=== PATIENT | female | born 1975 | race African-American/Black ===

== ENCOUNTER 2016-07-24 09:46 | Emergency (ER) | payer OTHER ==
[~2016-07-24] VITALS: Ht 154.9 cm; Wt 117.9 kg
[~2016-07-24 09:46] MED LIST: DOCU-27 PO; MEDR10TA3 PO; Oxycodone Hcl/Acetaminophen PO; PROAIR HFA8.5 GM IH
[2016-07-24 09:54] VITALS: BP 130/71
[2016-07-24] MEDS ORDERED: AMOX500C PO (10:26)
[2016-07-24] MEDS ORDERED: ONDA4TAB10 SL (10:28)
--- NOTE | 2016-07-24 10:28 | PHYS DOC ---
Past Medical History Past Medical History: Asthma Past Surgical History: , Hysterectomy, Other Additional Past Surgical Histo: left knee surgical repair, HERNIA SURGERY Alcohol Use: None Drug Use: None Adult General Chief Complaint Chief Complaint: HEADACHE HPI HPI Patient is a 41 year old female presents emergency department stating that she is having frontal sinus pressure for the last 3 days. She states that she has had a headache in which she has taken Tylenol and ibuprofen without relief. Patient denies any fever, chills she does state she had some nausea this morning but did not vomit. She denies any cough or congestion. Review of Systems Review of Systems Constitutional: Denies fever or chills [] Eyes: Denies change in visual acuity, redness, or eye pain [] HENT: nasal congestion denies sore throat [] Respiratory: Denies cough or shortness of breath [] Cardiovascular: No additional information not addressed in HPI [] GI: Denies abdominal pain, bloody stools or diarrhea. One episode of nausea Musculoskeletal: Denies back pain or joint pain [] Integument: Denies rash or skin lesions [] Neurologic: Denies headache, focal weakness or sensory changes [] Endocrine: Denies polyuria or polydipsia [] Current Medications Current Medications Current Medications Medications (Trade) Dose Ordered Sig/Kj Start Time Stop Time Status Last Admin Dose Admin Pseudoephedrine HCl (Sudafed 12-Hour) 120 mg 1X ONCE 07/24/16 11:00 07/24/16 11:01 DC 07/24/16 10:44 120 MG Allergies Allergies Allergies Coded Allergies Type Severity Reaction Last Updated Verified No Known Drug Allergies 03/13/15 No Physical Exam Physical Exam Constitutional: Well developed, well nourished, no acute distress, non-toxic appearance. [] HENT: Normocephalic, atraumatic, bilateral external ears normal, oropharynx moist, no oral exudates, nose normal. Bilateral tympanic membranes appear to be normal. Patient with frontal sinus tenderness. Throat with postnasal drip no exudate or erythematous noted. Eyes: PERRLA, EOMI, conjunctiva normal, no discharge. [] Neck: Normal range of motion, no tenderness, supple, no stridor. [] Cardiovascular:Heart rate regular rhythm, no murmur [] Lungs & Thorax: Bilateral breath sounds clear to auscultation [] Skin: Warm, dry, no erythema, no rash. [] Back: No tenderness Extremities: No tenderness, no cyanosis, no clubbing, ROM intact, no edema. [] Neurologic: Alert and oriented X 3, normal motor function, normal sensory function, no focal deficits noted. [] Psychologic: Affect normal, judgement normal, mood normal. [] Current Patient Data Vital Signs Vital Signs Date Time Temp Pulse Resp B/P Pulse Ox O2 Delivery O2 Flow Rate FiO2 07/24/16 09:54 98.7 73 16 100 Room Air 98.7 EKG EKG [] Radiology/Procedures Radiology/Procedures [] Course & Med Decision Making Course & Med Decision Making Pertinent Labs and Imaging studies reviewed. (See chart for details) She was recommended to use Mucinex and Sudafed as instructed by ecdis n navigation operator. She was provided with amoxicillin. Patient was discharged home in stable condition since symptoms to return back to emergency department as been provided. Patient agrees with discharge instructions treatment regimens and follow-up recommendations. Dragon Disclaimer Dragon Disclaimer This electronic medical record was generated, in whole or in part, using a voice recognition dictation system. Departure Departure Impression: Primary Impression: Sinusitis, acute Disposition: 01 HOME, SELF-CARE Condition: STABLE Referrals: NUNO BROWN MD (PCP) Patient Instructions: Sinusitis, [id number] Additional Instructions: Activity as tolerated. Sudafed as directed by ecdis n navigation operator. Mucinex as directed by ecdis n navigation operator. Medication as prescribed. Drink plenty of fluids. You may still also take Tylenol or ibuprofen for pain and discomfort. Follow-up with the primary care physician in the next 3-5 days. Return back to emergency department sign symptoms become worse. Scripts Ondansetron (Zofran Odt)4 Mg Tab.rapdis1 Tab SL Q8HRS #10 TAB Prov:JEFF RODRIGUEZ SURGERY NURSE 07/24/16 Amoxicillin 500 Mg Capsule1 Cap PO BID #20 CAP Prov:JEFF RODRIGUEZ SURGERY NURSE 07/24/16 JEFF RODRIGUEZ NP Jul 24, 2016 10:28
[2016-07-24] MEDS ORDERED: PSEUDOEPHEDRINE ER 120 MG TABLET.ER. PO ONE (11:00)
== END 2016-07-24 10:47 | disposition home or self-care (01) ==
LOC: ER 09:46
DX: J01.10 Acute frontal sinusitis, unspecified (principal); J45.909 Unspecified asthma, uncomplicated
CPT/HCPCS: 99283

== ENCOUNTER 2016-08-09 13:29 | Emergency (ER) | payer OTHER ==
[~2016-08-09] VITALS: Ht 154.9 cm; Wt 127.0 kg
[~2016-08-09 13:29] MED LIST changes: +AMOX500C PO; +ONDA4TAB10 SL
[2016-08-09 14:38] VITALS: BP 137/67
[2016-08-09] MEDS ORDERED: ORPHENADRINE CITRATE 60 MG/2 ML VIAL. IM ONE (15:15)
[2016-08-09] MEDS ORDERED: KETOROLAC TROMETHAMINE 60 MG/2 ML SYRINGE. IM ONE (15:15)
--- NOTE | 2016-08-09 15:43 | PHYS DOC ---
Past Medical History Past Medical History: Asthma Past Surgical History: , Hysterectomy, Other Additional Past Surgical Histo: left knee surgical repair, HERNIA SURGERY Additional Information: Nonsmoker Alcohol Use: None Drug Use: None Adult General Chief Complaint Chief Complaint: SHOULDER INJURY HPI HPI Patient is a 41 year old female who presents with right shoulder pain starting early yesterday morning. She has pain in the right side of her neck and the right upper arm as well. She denies any injury. She does not have any numbness or tingling. She denies chest pain or shortness of breath. She has tried heat and taking ibuprofen. The heat was somewhat helpful but the ibuprofen did not help her pain. She does not have a PCP. Review of Systems Review of Systems Constitutional: Denies fever or chills. [] Respiratory: Denies cough or shortness of breath. [] Cardiovascular: Denies chest pain, palpitations or edema. [] Musculoskeletal: Denies back pain. Reports right shoulder, right upper arm, and right neck pain. Integument: Denies rash or skin lesions. [] Neurologic: Denies headache, focal weakness or sensory changes. [] All systems reviewed and negative unless otherwise stated in the HPI. Current Medications Current Medications Current Medications Medications (Trade) Dose Ordered Sig/[facility] Start Time Stop Time Status Last Admin Dose Admin Ketorolac Tromethamine (Toradol Im) 60 mg 1X ONCE 08/09/16 15:15 08/09/16 15:22 DC 08/09/16 15:30 60 MG Orphenadrine Citrate (Norflex) 60 mg 1X ONCE 08/09/16 15:15 08/09/16 15:22 DC 08/09/16 15:30 60 MG Allergies Allergies Allergies Coded Allergies Type Severity Reaction Last Updated Verified No Known Drug Allergies 03/13/15 No Physical Exam Physical Exam Constitutional: Well developed, well nourished, no acute distress, non-toxic appearance. [] HENT: Normocephalic, atraumatic, oropharynx moist. [] Eyes: PERRLA, EOMI, conjunctiva normal, no discharge. [] Neck: Normal range of motion, right paraspinal muscle tenderness with moderate muscle spasm, supple, no stridor. [] Cardiovascular: Heart rate regular rhythm, no murmur. [] Lungs & Thorax: Bilateral breath sounds clear to auscultation without wheezes, rales, or rhonchi. [] Skin: Warm, dry, no erythema, no rash. [] Back: No midline tenderness, no CVA tenderness. [] Extremities: Right shoulder and upper arm tenderness diffusely, ROM intact in the hand, wrist, and elbow, decreased ROM in the right shoulder with abduction limited to 90 no edema. 2+ radial and ulnar pulses. Less than 2 second capillary refill in the fingers distally. Light touch sensation intact distally in the fingers. Neurologic: Alert and oriented X 3, normal motor function, normal sensory function, no focal deficits noted. [] Psychologic: Affect normal, judgement normal, mood normal. [] Current Patient Data Vital Signs Vital Signs Date Time Temp Pulse Resp B/P Pulse Ox O2 Delivery O2 Flow Rate FiO2 08/09/16 14:38 98.3 68 20 99 Room Air 98.3 EKG EKG [] Radiology/Procedures Radiology/Procedures REASON: shoulder pain, since yesterday morning, no known injury, no surgery PROCEDURE: SHOULDER 2+V RIGHT Exam performed:3 views right shoulder Indication:Right shoulder pain since yesterday morning, no known injury Date of service:08/09/16. Comparison:None available Findings :AP radiographs of the shoulder in internal and external rotation as well as a Y-view reveal the osseous structures to be intact and well aligned. The joint space is well-preserved. The articular margins are smooth. Impression: Radiographically normal shoulder. Course & Med Decision Making Course & Med Decision Making Pertinent Labs and Imaging studies reviewed. (See chart for details) Patient is a 41-year-old female who presents with atraumatic right shoulder pain. On exam, she is neurovascularly intact with muscle spasm in the right neck and shoulder region. She is given IM Norflex and Toradol in the emergency department for her pain. I discussed results with patient and family. She is discharged home with prescription for Ultram and Robaxin. She is given contact information for orthopedics for follow-up. Return precautions were discussed. She verbalizes understanding and agrees with plan. Dragon Disclaimer Dragon Disclaimer This electronic medical record was generated, in whole or in part, using a voice recognition dictation system. Departure Departure Impression: Primary Impression: Shoulder pain, right Disposition: HOME, SELF-CARE Condition: STABLE Referrals: ALEXANDER WILLARD II, MD Patient Instructions: Shoulder Pain, [id number] Additional Instructions: Your xray does not show any abnormalities. Your pain is likely due to muscle spasm. Please take the prescribed pain medication and muscle relaxers as directed. Do not drive or operate heavy machinery while taking these medications. Please follow-up with the orthopedic doctor listed below if your pain continues. Return to emergency department if you have any new or concerning symptoms. Scripts Tramadol Hcl (Ultram)50 Mg [id number] Mg PO Q6H PRN PAIN #20 TAB Prov:CLAUDIA ESTEBAN 08/09/16 Methocarbamol (Robaxin)500 Mg [id number] Mg PO QID #20 TAB Prov:CLAUDIA ESTEBAN 08/09/16 Problem Qualifiers Primary Impression: Shoulder pain, right Chronicity: acute Qualified Code: M25.511 - Pain in right shoulder CLAUDIA ESTEBAN Aug 09, 2016 15:43
[2016-08-09] MEDS ORDERED: METH-37 PO (15:59)
[2016-08-09] MEDS ORDERED: TRAM-29 PO (15:59)
== END 2016-08-09 16:03 | disposition home or self-care (01) ==
LOC: ER 13:29
DX: M25.511 Pain in right shoulder (principal); J45.909 Unspecified asthma, uncomplicated
CPT/HCPCS: 73030; 96372; 99284; J1885; J2360

== ENCOUNTER 2016-12-23 17:36 | Emergency (ER) | payer OTHER ==
[~2016-12-23] VITALS: Ht 154.9 cm; Wt 113.4 kg
[~2016-12-23 17:36] MED LIST changes: +DOCU-109 PO; -DOCU-27 PO; +HYDR-2758 PO; +METH-37 PO; +NITR100C62 PO; +TRAM-48 PO
[2016-12-23 17:44] VITALS: BP 135/65
[2016-12-23] MEDS ORDERED: IBUPROFEN 800 MG TABLET. PO ONE (18:00)
--- NOTE | 2016-12-23 18:08 | PHYS DOC ---
Past Medical History Past Medical History: Asthma Past Surgical History: , Hysterectomy, Other Additional Past Surgical Histo: left knee surgical repair, HERNIA SURGERY Alcohol Use: None Drug Use: None Adult General Chief Complaint Chief Complaint: LOWER EXT PAIN [facility] HPI Patient is a 41 year old female sits to the emergency department stating that she developed right knee to lower leg pain approximately 2 hours prior to arrival. Patient had spoke with the nurse and told her that she had been having pain for the last 3 days. Patient states that she had been walking today and felt as though her lip was going to give out. She states then she was sitting today as well and the pain developed and she had a sharp pain that went down into her leg. She states that she has not taken anything for the pain and discomfort. She denies any injury or trauma to the area. She denies any history of control or hormonal therapy. Denies any history of long travel. She denies any history of DVTs or family history of DVTs. Review of Systems Review of Systems Constitutional: Denies fever or chills [] Eyes: Denies change in visual acuity, redness, or eye pain [] HENT: Denies nasal congestion or sore throat [] Respiratory: Denies cough or shortness of breath [] Cardiovascular: No additional information not addressed in HPI [] GI: Denies abdominal pain, nausea, vomiting, bloody stools or diarrhea [] : Denies dysuria or hematuria [] Musculoskeletal: Denies back pain. C/o right knee and lower leg pain Integument: Denies rash or skin lesions [] Neurologic: Denies headache, focal weakness or sensory changes [] Endocrine: Denies polyuria or polydipsia [] Current Medications Current Medications Current Medications Medications (Trade) Dose Ordered Sig/[facility] Start Time Stop Time Status Last Admin Dose Admin Ibuprofen (Motrin) 800 mg 1X ONCE 12/23/16 18:00 12/23/16 18:01 DC 12/23/16 18:00 800 MG Allergies Allergies Allergies Coded Allergies Type Severity Reaction Last Updated Verified No Known Drug Allergies 12/23/16 No Physical Exam Physical Exam Constitutional: Well developed, well nourished, no acute distress, non-toxic appearance. [] HENT: Normocephalic, atraumatic, bilateral external ears normal, oropharynx moist, no oral exudates, nose normal. [] Eyes: PERRLA, EOMI, conjunctiva normal, no discharge. [] Neck: Normal range of motion, no tenderness, supple, no stridor. [] Cardiovascular:Heart rate regular rhythm, no murmur [] Lungs & Thorax: Bilateral breath sounds clear to auscultation [] Skin: Warm, dry, no erythema, no rash. [] Back: No tenderness Extremities: Right knee tenderness noted to the entire knee she had tenderness to the right lower leg, no cyanosis, no clubbing, ROM intact, no edema. Peripheral pulses 2+ cap refill brisk < 2 seconds. Patient with full ROM of the knee. Neurologic: Alert and oriented X 3, normal motor function, normal sensory function, no focal deficits noted. [] Psychologic: Affect normal, judgement normal, mood normal. [] Current Patient Data Vital Signs Vital Signs Date Time Temp Pulse Resp B/P (MAP) Pulse Ox O2 Delivery O2 Flow Rate FiO2 12/23/16 17:44 98.4 72 20 99 Room Air 98.4 EKG EKG [] Radiology/Procedures Radiology/Procedures [] Course & Med Decision Making Course & Med Decision Making Pertinent Labs and Imaging studies reviewed. (See chart for details) X-ray of the right knee was negative per Dr. Spears. Patient will be discharged home with recommendations for ibuprofen or Tylenol for pain and discomfort. Ice packs on 20 minutes off 20 minutes several times a day. Also recommended following up with her primary care physician or orthopedic in the next week. Signs symptoms to return back to emergency department as been provided. Patient be discharged home in stable condition. [] Dragon Disclaimer Dragon Disclaimer This electronic medical record was generated, in whole or in part, using a voice recognition dictation system. Departure Departure Impression: Primary Impression: Right knee pain Disposition: HOME, SELF-CARE Condition: STABLE Referrals: NO PCP (PCP) ALEXANDER WILLARD II, MD Patient Instructions: Knee Pain, [id number] Additional Instructions: Activity as tolerated Patient's as prescribed such as ibuprofen or Tylenol. Ice packs on 20 minutes off 20 minutes several times a day. You may obtain a knee brace that is an chriss type wrap from [employer] or [employer]. Follow-up with your primary care physician or orthopedic in the next week. Return back to emergency prior signs symptoms of become worse. JEFF RODRIGUEZ NATURAL GAS INSPECTOR Dec 23, 2016 18:08
--- NOTE | 2016-12-24 07:59 | RAD ---
Right knee with patella, 4 views, 12/23/2016: History: Right knee pain There is mild spurring at the knee joint and at the patellofemoral articulation. No acute fracture or dislocation is evident. There is a suggestion of a joint effusion. IMPRESSION: 1. Mild degenerative change with a probable knee joint effusion. 2. No acute bony abnormality is detected.
== END 2016-12-23 19:05 | disposition home or self-care (01) ==
LOC: ER 17:36
DX: M25.561 Pain in right knee (principal); J45.909 Unspecified asthma, uncomplicated; Z90.710 Acquired absence of both cervix and uterus; Z98.890 Other specified postprocedural states
CPT/HCPCS: 73564; 99284

== ENCOUNTER 2019-09-16 14:25 | Emergency (ER) | payer MEDICAID, OTHER ==
[~2019-09-16] VITALS: Ht 154.9 cm; Wt 19.0 kg
[~2019-09-16 14:25] MED LIST changes: +ALBU2.5V8 IH; -HYDR-2758 PO; +HYDR-2761 PO; -PROAIR HFA8.5 GM IH
[2019-09-16 15:20] VITALS: BP 141/65
[2019-09-16] MEDS ORDERED: predniSONE 10 MG TABLET PO ONE (15:45)
[2019-09-16] MEDS ORDERED: BENZONATATE 100 MG CAPSULE. PO ONE (15:45)
[2019-09-16] MEDS ORDERED: IPRATRPIUM/ALBUTEROL 0.5/2.5MG 3 ML NEBU. NEB ONE (15:45)
--- NOTE | 2019-09-16 15:48 | PHYS DOC ---
Past Medical History Past Medical History: Asthma, Other Additional Past Medical Histor: Hernia Past Surgical History: , Hysterectomy, Other Additional Past Surgical Histo: left knee surgical repair, HERNIA SURGERY Smoking Status: Never Smoker Alcohol Use: None Drug Use: None Adult General Chief Complaint Chief Complaint: COUGH HPI HPI Patient is a 44 year old female who presents the ED today complaining of cough, subjective fevers and headaches that began yesterday. Review of Systems Review of Systems Constitutional: Reports subjective fevers Eyes: Denies change in visual acuity, redness, or eye pain [] HENT: Denies nasal congestion or sore throat [] Respiratory: Reports cough, denies shortness of breath [] Cardiovascular: No additional information not addressed in HPI [] GI: Denies abdominal pain, nausea, vomiting, bloody stools or diarrhea [] : Denies dysuria or hematuria [] Musculoskeletal: Denies back pain or joint pain [] Integument: Denies rash or skin lesions [] Neurologic: Reports headache, denies focal weakness or sensory changes [] All other systems were reviewed and found to be within normal limits, except as documented in this note. Current Medications Current Medications Current Medications Medications (Trade) Dose Ordered Sig/Kj Start Time Stop Time Status Last Admin Dose Admin Albuterol/ Ipratropium (Duoneb) 3 ml 1X ONCE 09/16/19 15:45 09/16/19 15:46 DC 09/16/19 15:44 3 ML Azithromycin (Zithromax) 1,000 mg 1X ONCE 09/16/19 17:15 09/16/19 17:16 DC Benzonatate (Tessalon Perle) 100 mg 1X ONCE 09/16/19 15:45 09/16/19 15:46 DC 09/16/19 15:59 100 MG Ceftriaxone Sodium (Rocephin Im) 250 mg 1X ONCE 09/16/19 17:15 09/16/19 17:16 DC Metronidazole (Flagyl) 2,000 mg 1X ONCE 09/16/19 17:15 09/16/19 17:16 DC Prednisone (Prednisone) 50 mg 1X ONCE 09/16/19 15:45 09/16/19 15:46 DC 09/16/19 15:59 50 MG Allergies Allergies Allergies Coded Allergies Type Severity Reaction Last Updated Verified No Known Drug Allergies 12/23/16 No Physical Exam Physical Exam Constitutional: Well developed, well nourished, no acute distress, non-toxic appearance. [] HENT: Normocephalic, atraumatic, bilateral external ears normal, oropharynx moist, no oral exudates, nose normal. [] Eyes: PERRLA, EOMI, conjunctiva normal, no discharge. [] Neck: Normal range of motion, no tenderness, supple, no stridor. [] Cardiovascular:Heart rate regular rhythm, no murmur [] Lungs & Thorax: tight chest Abdomen: Bowel sounds normal, soft, no tenderness, no masses, no pulsatile masses. [] Skin: Warm, dry, no erythema, no rash. [] Back: No tenderness, no CVA tenderness. [] Extremities: No tenderness, no cyanosis, no clubbing, ROM intact, no edema. [] Neurologic: Alert and oriented X 3, normal motor function, normal sensory function, no focal deficits noted. [] Psychologic: Affect normal, judgement normal, mood normal. [] Current Patient Data Vital Signs Vital Signs Date Time Temp Pulse Resp B/P (MAP) Pulse Ox O2 Delivery O2 Flow Rate FiO2 09/16/19 15:20 98.8 107 20 141/65 (90) 98 Room Air 98.8 Lab Values Laboratory Tests Test 09/16/19 16:30 Urine Collection Type Unknown Urine Color Yellow Urine Clarity Clear Urine pH 5.5 Urine Specific [place] 1.025 Urine Protein Negative mg/dL (NEG-TRACE) Urine Glucose (UA) Negative mg/dL (NEG) Urine Ketones (Stick) Negative mg/dL (NEG) Urine Blood Moderate (NEG) Urine Nitrite Negative (NEG) Urine Bilirubin Negative (NEG) Urine Urobilinogen Dipstick 1.0 mg/dL (0.2 mg/dL) Urine Leukocyte Esterase Small (NEG) Urine RBC Occ /HPF (0-2) Urine WBC 5-10 /HPF (0-4) Urine Squamous Epithelial Cells Many /LPF Urine Bacteria Many /HPF (0-FEW) Urine Mucus Marked /LPF Urine Trichomonas Present EKG EKG [] Radiology/Procedures Radiology/Procedures []PROCEDURE: CHEST PA & LATERAL Exam performed: 2 views of the chest. Indication: Cough Date of Service: 09/16/2019 3:31 PM . Comparison : One view chest from 01/25/2016 Findings: PA and lateral radiographs of the chest reveal a normal cardiomediastinal contour. The lungs are clear. No pleural fluid is seen. The visualized osseous structures are unremarkable. Impression: No acute cardiopulmonary process seen. Electronically signed by: Raegan Julian MD (09/16/2019 4:38 PM) [id number] DICTATED and SIGNED BY: RAEGAN JULIAN MD DATE: 09/16/19 6022 Course & Med Decision Making Course & Med Decision Making Pertinent Labs and Imaging studies reviewed. (See chart for details) This is a 44-year-old female patient presenting to the ED today with cough subjective fevers, symptoms began yesterday. Chest x-ray interpreted by radiologist is negative for any acute findings. Patient is afebrile. She was noted for smelling urine. UA was sent to lab, you were positive for trichomonas, has small amount of leukocytes but appears contaminated with squamous cells epithelium. Patient was treated for STDs. was in the ED who also was checked in and was treated, education provided to them as well as follow-up information. Dragon Disclaimer Dragon Disclaimer This electronic medical record was generated, in whole or in part, using a voice recognition dictation system. Departure Departure Impression: Primary Impression: Trichomonas vaginitis Additional Impression: Cough Disposition: 01 HOME, SELF-CARE Condition: STABLE Referrals: NO PCP (PCP) Follow-up with your doctor in 1 to 2 weeks Patient Instructions: Cough, Adult, [id number], Trichomoniasis-Brief Additional Instructions: You were treated for sexually transmitted diseases, do not have intercourse for a week. Use protection at all times. Your chest x-ray was negative for any acute findings. Use the prescribed medications as ordered. Follow-up with your own doctor in 1 to 2 weeks. Scripts Benzonatate (TESSALON PERLE) 100 Mg Capsule 1 CAP PO TID, #30 CAP Prov: MUTUNGA,YUKI SALON/SPA MANAGER 09/16/19 Albuterol Sulfate (Proair Hfa) 8.5 Gm Hfa.aer.ad 2 PUFF IH PRN Q4-6HRS PRN for wheezing for 21 Days, #1 INHALER 0 Refills Prov: MUTUNGA,YUKI SALON/SPA MANAGER 09/16/19 Prednisone (PREDNISONE) 50 Mg Tablet 1 TAB PO DAILY, #4 TAB Prov: MUTUNGA,YUKI SALON/SPA MANAGER 09/16/19 Problem Qualifiers MUTUNGA,YUKI SALON/SPA MANAGER Sep 16, 2019 15:48
[2019-09-16 16:37] LABS: BILIRUBIN,URINE NEGATIVE (NEG); CLARITY,URINE CLEAR; COLOR,URINE YELLOW; NITRITE,URINE NEGATIVE (NEG); PH,URINE 5.5; PROTEIN,URINE NEGATIVE (NEG-TRACE)
--- NOTE | 2019-09-16 16:40 | RAD ---
Exam performed: 2 views of the chest. Indication: Cough Date of Service: 09/16/2019 3:31 PM . Comparison : One view chest from 01/25/2016 Findings: PA and lateral radiographs of the chest reveal a normal cardiomediastinal contour. The lungs are clear. No pleural fluid is seen. The visualized osseous structures are unremarkable. Impression: No acute cardiopulmonary process seen. Electronically signed by: Raegan Julian MD (09/16/2019 4:38 PM) [id number]
[2019-09-16 16:57] LABS: BACTERIA,URINE MANY /HPF (0-FEW); RBC,URINE OCC /HPF (0-2); SQUAMOUS EPITHELIAL CELL,UR MANY /LPF; TRICHOMONAS,URINE PRESENT
[2019-09-16] MEDS ORDERED: metroNIDAZOLE 500 MG TABLET PO ONE (17:15)
[2019-09-16] MEDS ORDERED: AZITHROMYCIN 250 MG TABLET. PO ONE (17:15)
[2019-09-16] MEDS ORDERED: cefTRIAXone IM 250 MG VIAL IM ONE (17:15)
[2019-09-16] MEDS ORDERED: ALBU2.5V8 IH (17:32)
[2019-09-16] MEDS ORDERED: BENZ100C PO (17:32)
[2019-09-16] MEDS ORDERED: PRED50TA PO (17:32)
== END 2019-09-16 18:40 | disposition home or self-care (01) ==
LOC: ER 14:25
DX: A59.01 Trichomonal vulvovaginitis (principal); R05 Cough; J45.909 Unspecified asthma, uncomplicated; Z90.710 Acquired absence of both cervix and uterus; Z98.890 Other specified postprocedural states
CPT/HCPCS: 71046; 81001; 87086; 94640; 96372; 99284; J0696; J7512